=== PATIENT | male | born 1930 | race Caucasian/White ===

== ENCOUNTER 2017-09-25 14:55 | Inpatient (IN) | payer MEDICARE ==
[~2017-09-25] VITALS: Ht 175.3 cm; Wt 84.9 kg
[~2017-09-25 14:55] MED LIST: ACID1TAB3 PO; AMOX1TAB61 PO; CARV3.122 PO; FINA5TAB4 PO; FURO-93 PO; LISI2.5T PO; POTA10TA PO; PRED20TA PO; TAMS-11 PO; TRAV5DRO OP; bp med PO
[2017-09-25 15:23] LABS: BASOPHILS # (AUTO) 0.04 x10^3/uL (0-0.1); BASOPHILS % (AUTO) 0 % (0-1); EOSINOPHILS # (AUTO) 0.16 x10^3/uL (0-0.4); EOSINOPHILS % (AUTO) 2 % (1-7); LYMPHOCYTES # (AUTO) 1.54 x10^3/uL (1-3.4); LYMPHOCYTES % (AUTO) 16 % (22-44); MD NO; MEAN CORPUSCULAR HEMOGLOBIN 31.6 pg (27.5-34.5); MEAN CORPUSCULAR HGB CONC 35.1 g/dL (33.2-36.2); MEAN CORPUSCULAR VOLUME 89.9 fL (81-97); MEAN PLATELET VOLUME 7.2 fL (7.4-10.4); MONOCYTES # (AUTO) 0.77 x10^3/uL (0.2-0.8); MONOCYTES % (AUTO) 8 % (2-9); NEUTROPHILS # (AUTO) 7.04 x10^3/uL (1.8-6.8); NEUTROPHILS % (AUTO) 74 % (42-75); PLATELET COUNT 406 x10^3/uL (130-400); RED BLOOD COUNT 3.45 x10^6/uL (4.38-5.82); RED CELL DISTRIBUTION WIDTH 12.9 % (9.4-14.8)
[2017-09-25] MEDS ORDERED: SODIUM CHLORIDE FLUSH 10ML SYR IVF ONE (15:30)
[2017-09-25 15:34] LABS: ALANINE AMINOTRANSFERASE 15 U/L (12-78); ALBUMIN 2.9 g/dL (3.4-5.0); ANION GAP 12 mmol/L (5-15); CALCIUM 8.4 mg/dL (8.5-10.1); CHLORIDE 106 mmol/L (98-107); CREATININE 3.72 mg/dL (0.7-1.3)
[2017-09-25 15:37] LABS: ALKALINE PHOSPHATASE 63 U/L (45-117); BILIRUBIN,TOTAL 0.5 mg/dL (0.2-1.0); TOTAL PROTEIN 6.6 g/dL (6.4-8.2)
[2017-09-25 16:04] LABS: MICROSCOPIC NOT IND
[2017-09-25 16:08] LABS: CULTURE INDICATED? NO
[2017-09-25] MEDS ORDERED: LACTULOSE 20 GM/30 ML UDC PO PRN (17:30)
[2017-09-25] MEDS ORDERED: ONDANSETRON 2MG/ML, 2ML IVPush PRN (17:30)
[2017-09-25] MEDS ORDERED: LABETALOL 5MG/ML, 20ML IVPush PRN (17:30)
[2017-09-25] MEDS ORDERED: hydrALAzine 20 MG/ML, 1ML IVPush PRN (17:30)
[2017-09-25] MEDS ORDERED: ONDANSETRON ODT 4 MG PO PRN (17:30)
[2017-09-25] MEDS ORDERED: BISACODYL 10 MG SUPP PR PRN ×2 (17:30)
[2017-09-25 18:39] VITALS: BP 135/70
[2017-09-25] MEDS: LACTATED RINGERS 1,000 ML IV SCH (18:47)
[2017-09-25] MEDS: HEPARIN 5,000 UNITS/ML, 1ML SQ SCH (18:51)
[2017-09-25] MEDS ORDERED: HYDROCHLOROTHIAZIDE 12.5 MG CAPSULE PO ONE (19:00)
[2017-09-25] MEDS: TRAVOPROST OPHTH 0.004%, 2.5ML OP SCH (21:00)
[2017-09-25] MEDS: FINASTERIDE 5 MG TABLET PO SCH (22:43)
[2017-09-25] MEDS: SENNOSIDES 8.8 MG/5 ML ORAL SOL NG SCH (22:47)
[2017-09-26 01:03] VITALS: BP 115/58
[2017-09-26] MEDS: LACTATED RINGERS 1,000 ML IV SCH ×3 (04:46→19:12)
[2017-09-26] MEDS: HEPARIN 5,000 UNITS/ML, 1ML SQ SCH ×2 (04:46→10:56)
[2017-09-26 05:32] LABS: ALANINE AMINOTRANSFERASE 13 U/L (12-78); ALBUMIN 2.4 g/dL (3.4-5.0); ANION GAP 10 mmol/L (5-15); BASOPHILS # (AUTO) 0.03 x10^3/uL (0-0.1); BASOPHILS % (AUTO) 0 % (0-1); CALCIUM 7.1 mg/dL (8.5-10.1); CHLORIDE 110 mmol/L (98-107); CREATININE 3.53 mg/dL (0.7-1.3); EOSINOPHILS # (AUTO) 0.34 x10^3/uL (0-0.4); EOSINOPHILS % (AUTO) 4 % (1-7); LYMPHOCYTES % (AUTO) 23 % (22-44); MD NO; MEAN CORPUSCULAR HGB CONC 34.4 g/dL (33.2-36.2); MEAN CORPUSCULAR VOLUME 90.1 fL (81-97); MEAN PLATELET VOLUME 7.4 fL (7.4-10.4); MONOCYTES # (AUTO) 0.96 x10^3/uL (0.2-0.8); MONOCYTES % (AUTO) 11 % (2-9); NEUTROPHILS # (AUTO) 5.41 x10^3/uL (1.8-6.8); NEUTROPHILS % (AUTO) 62 % (42-75); PLATELET COUNT 303 x10^3/uL (130-400); RED BLOOD COUNT 2.79 x10^6/uL (4.38-5.82); RED CELL DISTRIBUTION WIDTH 13.4 % (9.4-14.8)
[2017-09-26 05:34] LABS: ALKALINE PHOSPHATASE 55 U/L (45-117); BILIRUBIN,TOTAL 0.5 mg/dL (0.2-1.0); TOTAL PROTEIN 5.5 g/dL (6.4-8.2)
[2017-09-26 07:39] VITALS: BP 122/64
[2017-09-26] MEDS ORDERED: LISINOPRIL 20 MG TABLET PO SCH (09:00)
[2017-09-26] MEDS: DOCUSATE 50 MG/5 ML, 10ML UDC NG SCH (09:00)
[2017-09-26] MEDS: SENNA/DOCUSATE TABLET PO SCH (10:00)
[2017-09-26] MEDS: TAMSULOSIN 0.4 MG CAP.ER.24H PO SCH (10:00)
[2017-09-26] MEDS: DOCUSATE 100 MG CAPSULE PO SCH (10:00)
[2017-09-26 13:35] VITALS: BP 134/71
[2017-09-26 19:56] VITALS: BP 126/59
[2017-09-26] MEDS: TRAVOPROST OPHTH 0.004%, 2.5ML OP SCH (20:57)
[2017-09-26] MEDS: FINASTERIDE 5 MG TABLET PO SCH (20:58)
[2017-09-26] MEDS: SENNOSIDES 8.8 MG/5 ML ORAL SOL NG SCH (20:58)
[2017-09-27 02:04] VITALS: BP 152/68
[2017-09-27] MEDS: LACTATED RINGERS 1,000 ML IV SCH ×3 (04:00→20:00)
[2017-09-27 05:44] LABS: ALBUMIN 2.5 g/dL (3.4-5.0); ANION GAP 7 mmol/L (5-15); CALCIUM 7.6 mg/dL (8.5-10.1); CHLORIDE 112 mmol/L (98-107)
[2017-09-27 05:48] LABS: ALANINE AMINOTRANSFERASE 16 U/L (12-78); ALKALINE PHOSPHATASE 56 U/L (45-117); BILIRUBIN,TOTAL 0.7 mg/dL (0.2-1.0); CREATININE 3.88 mg/dL (0.7-1.3); TOTAL PROTEIN 5.8 g/dL (6.4-8.2)
[2017-09-27 07:11] VITALS: BP 131/65
[2017-09-27] MEDS: DOCUSATE 50 MG/5 ML, 10ML UDC NG SCH (09:00)
[2017-09-27] MEDS: DOCUSATE 100 MG CAPSULE PO SCH (09:00)
[2017-09-27] MEDS: TAMSULOSIN 0.4 MG CAP.ER.24H PO SCH (09:04)
[2017-09-27] MEDS: SENNA/DOCUSATE TABLET PO SCH (09:04)
[2017-09-27 14:02] VITALS: BP 137/78
[2017-09-27] MEDS ORDERED: GADOBUTROL 7.5 MMOL/7.5 ML PFS ONE (17:21)
[2017-09-27 20:00] VITALS: BP 125/64
[2017-09-27] MEDS: FINASTERIDE 5 MG TABLET PO SCH (21:00)
[2017-09-27] MEDS: TRAVOPROST OPHTH 0.004%, 2.5ML OP SCH (21:00)
[2017-09-28 02:00] VITALS: BP 142/70
[2017-09-28 04:59] LABS: INTERNATIONAL NORMALIZED RATIO 1.1 (0.93-1.1); PROTHROMBIN TIME 11.4 Seconds (9.6-11.5)
[2017-09-28 05:00] LABS: BASOPHILS # (AUTO) 0.05 x10^3/uL (0-0.1); BASOPHILS % (AUTO) 0 % (0-1); EOSINOPHILS # (AUTO) 0.07 x10^3/uL (0-0.4); EOSINOPHILS % (AUTO) 1 % (1-7); LYMPHOCYTES # (AUTO) 1.12 x10^3/uL (1-3.4); LYMPHOCYTES % (AUTO) 11 % (22-44); MD NO; MEAN CORPUSCULAR HGB CONC 34.6 g/dL (33.2-36.2); MEAN CORPUSCULAR VOLUME 89.6 fL (81-97); MEAN PLATELET VOLUME 7.1 fL (7.4-10.4); MONOCYTES # (AUTO) 1.35 x10^3/uL (0.2-0.8); MONOCYTES % (AUTO) 13 % (2-9); NEUTROPHILS # (AUTO) 7.65 x10^3/uL (1.8-6.8); NEUTROPHILS % (AUTO) 75 % (42-75); PLATELET COUNT 289 x10^3/uL (130-400); RED BLOOD COUNT 2.84 x10^6/uL (4.38-5.82); RED CELL DISTRIBUTION WIDTH 13.1 % (9.4-14.8)
[2017-09-28 05:06] LABS: ALANINE AMINOTRANSFERASE 13 U/L (12-78); ALBUMIN 2.3 g/dL (3.4-5.0); ANION GAP 8 mmol/L (5-15); CHLORIDE 114 mmol/L (98-107); CREATININE 3.16 mg/dL (0.7-1.3)
[2017-09-28 05:08] LABS: ALKALINE PHOSPHATASE 44 U/L (45-117); BILIRUBIN,TOTAL 0.6 mg/dL (0.2-1.0); TOTAL PROTEIN 5.6 g/dL (6.4-8.2)
[2017-09-28] MEDS: LACTATED RINGERS 1,000 ML IV SCH ×3 (05:55→22:19)
[2017-09-28 08:00] VITALS: BP 154/67
[2017-09-28] MEDS: DOCUSATE 50 MG/5 ML, 10ML UDC NG SCH (08:32)
[2017-09-28] MEDS: SENNA/DOCUSATE TABLET PO SCH (08:32)
[2017-09-28] MEDS: DOCUSATE 100 MG CAPSULE PO SCH (08:32)
[2017-09-28] MEDS: TAMSULOSIN 0.4 MG CAP.ER.24H PO SCH (09:35)
[2017-09-28] MEDS: TIMOLOL OPHTH 0.5%, 5ML EACHEYE SCH (11:24)
[2017-09-28 14:02] VITALS: BP 144/70
[2017-09-28 20:24] VITALS: BP 135/65
[2017-09-28] MEDS: LATANOPROST OPHTH 0.005%, 2.5ML OP SCH (21:00)
[2017-09-28] MEDS: FINASTERIDE 5 MG TABLET PO SCH (22:18)
[2017-09-29 01:32] VITALS: BP 150/73
[2017-09-29 06:14] LABS: ANION GAP 9 mmol/L (5-15); CALCIUM 8.2 mg/dL (8.5-10.1); CHLORIDE 113 mmol/L (98-107); CREATININE 2.93 mg/dL (0.7-1.3)
[2017-09-29] MEDS: LACTATED RINGERS 1,000 ML IV SCH (06:20)
[2017-09-29 06:55] VITALS: BP 151/69
[2017-09-29] MEDS: DOCUSATE 50 MG/5 ML, 10ML UDC NG SCH (09:00)
[2017-09-29] MEDS: DOCUSATE 100 MG CAPSULE PO SCH (09:00)
[2017-09-29] MEDS: SENNA/DOCUSATE TABLET PO SCH (09:56)
[2017-09-29] MEDS: TAMSULOSIN 0.4 MG CAP.ER.24H PO SCH (09:58)
[2017-09-29] MEDS: TIMOLOL OPHTH 0.5%, 5ML EACHEYE SCH (10:46)
[2017-09-29] MEDS ORDERED: LIDOCAINE GEL 2%, 5ML TP ONE (11:00)
[2017-09-29 13:05] VITALS: BP 146/75
[2017-09-29 20:08] VITALS: BP 160/69
[2017-09-29] MEDS: FINASTERIDE 5 MG TABLET PO SCH (20:55)
[2017-09-29] MEDS: LATANOPROST OPHTH 0.005%, 2.5ML OP SCH (21:00)
[2017-09-30 01:03] VITALS: BP 135/65
[2017-09-30 05:06] LABS: ANION GAP 8 mmol/L (5-15); CALCIUM 7.7 mg/dL (8.5-10.1); CHLORIDE 113 mmol/L (98-107)
[2017-09-30 05:07] LABS: CREATININE 2.65 mg/dL (0.7-1.3)
[2017-09-30 07:35] VITALS: BP 156/75
[2017-09-30] MEDS: DOCUSATE 50 MG/5 ML, 10ML UDC NG SCH (09:00)
[2017-09-30] MEDS: SENNA/DOCUSATE TABLET PO SCH (09:00)
[2017-09-30] MEDS: TAMSULOSIN 0.4 MG CAP.ER.24H PO SCH (09:54)
[2017-09-30] MEDS: DOCUSATE 100 MG CAPSULE PO SCH (09:54)
[2017-09-30] MEDS: TIMOLOL OPHTH 0.5%, 5ML EACHEYE SCH (09:54)
[2017-09-30 13:30] VITALS: BP 146/70
[2017-09-30 19:35] VITALS: BP 121/62
[2017-09-30] MEDS: FINASTERIDE 5 MG TABLET PO SCH (20:32)
[2017-09-30] MEDS: LATANOPROST OPHTH 0.005%, 2.5ML OP SCH (20:34)
[2017-10-01 01:54] VITALS: BP 153/69
[2017-10-01 05:49] LABS: ANION GAP 8 mmol/L (5-15); CALCIUM 7.9 mg/dL (8.5-10.1); CHLORIDE 109 mmol/L (98-107)
[2017-10-01 05:52] LABS: CREATININE 2.53 mg/dL (0.7-1.3)
[2017-10-01 06:57] VITALS: BP 129/64
[2017-10-01] MEDS: DOCUSATE 50 MG/5 ML, 10ML UDC NG SCH (08:54)
[2017-10-01] MEDS: SENNA/DOCUSATE TABLET PO SCH (09:00)
[2017-10-01] MEDS: DOCUSATE 100 MG CAPSULE PO SCH (09:07)
[2017-10-01] MEDS: TIMOLOL OPHTH 0.5%, 5ML EACHEYE SCH (09:07)
[2017-10-01] MEDS: TAMSULOSIN 0.4 MG CAP.ER.24H PO SCH (09:07)
[2017-10-01] MEDS: LISINOPRIL 20 MG TABLET PO SCH (09:07)
[2017-10-01 13:37] VITALS: BP 124/65
[2017-10-01 18:58] VITALS: BP 134/67
[2017-10-01] MEDS: LATANOPROST OPHTH 0.005%, 2.5ML OP SCH (21:00)
[2017-10-01] MEDS: FINASTERIDE 5 MG TABLET PO SCH (22:22)
[2017-10-02 02:51] VITALS: BP 106/58
[2017-10-02 05:11] LABS: ALBUMIN 2.1 g/dL (3.4-5.0); ANION GAP 8 mmol/L (5-15); CALCIUM 7.9 mg/dL (8.5-10.1); CHLORIDE 109 mmol/L (98-107)
[2017-10-02 05:13] LABS: CREATININE 2.53 mg/dL (0.7-1.3)
[2017-10-02 07:00] VITALS: BP 127/65
[2017-10-02] MEDS: DOCUSATE 50 MG/5 ML, 10ML UDC NG SCH (08:44)
[2017-10-02] MEDS: DOCUSATE 100 MG CAPSULE PO SCH (08:48)
[2017-10-02] MEDS: TAMSULOSIN 0.4 MG CAP.ER.24H PO SCH (08:48)
[2017-10-02] MEDS: LISINOPRIL 20 MG TABLET PO SCH (08:48)
[2017-10-02] MEDS: TIMOLOL OPHTH 0.5%, 5ML EACHEYE SCH (08:49)
[2017-10-02] MEDS: SENNA/DOCUSATE TABLET PO SCH (08:50)
[2017-10-02 14:37] VITALS: BP 134/70
== END 2017-10-02 16:58 | disposition home health service (06) | DRG 682 ==
LOC: ED 16:44 → EDIP 16:47 → 4NOR 18:22 → DCLOUNGE 10-02 16:50
PROVIDERS: ADMIT Family Medicine; ATTEND Family Medicine
DX: N17.9 Acute kidney failure, unspecified (principal); E43 Unspecified severe protein-calorie malnutrition; R31.0 Gross hematuria; D62 Acute posthemorrhagic anemia; N13.8 Other obstructive and reflux uropathy; D63.8 Anemia in other chronic diseases classified elsewhere; N40.1 Benign prostatic hyperplasia with lower urinary tract symptoms; N13.30 Unspecified hydronephrosis; H40.9 Unspecified glaucoma; I10 Essential (primary) hypertension; K44.9 Diaphragmatic hernia without obstruction or gangrene; K59.09 Other constipation; N32.0 Bladder-neck obstruction; N32.3 Diverticulum of bladder; N32.89 Other specified disorders of bladder; R33.8 Other retention of urine; Z87.891 Personal history of nicotine dependence; Z91.19 Patient's noncompliance with other medical treatment and regimen
CPT/HCPCS: 36415; 71250; 72158; 74176; 76770; 80048; 80053; 80069; 81003; 82274; 82728; 83540; 83550; 84153; 85014; 85018; 85025; 85610; 85730; 99285; A9585; J1644; J7120

== ENCOUNTER 2017-10-05 14:10 | Inpatient (IN) | payer MEDICARE ==
[~2017-10-05] VITALS: Ht 175.3 cm; Wt 81.5 kg
[2017-10-05 15:08] LABS: BASOPHILS # (AUTO) 0.05 x10^3/uL (0-0.1); BASOPHILS % (AUTO) 0 % (0-1); EOSINOPHILS # (AUTO) 0.09 x10^3/uL (0-0.4); EOSINOPHILS % (AUTO) 1 % (1-7); LYMPHOCYTES # (AUTO) 1.62 x10^3/uL (1-3.4); LYMPHOCYTES % (AUTO) 11 % (22-44); MD NO; MEAN CORPUSCULAR HEMOGLOBIN 30.3 pg (27.5-34.5); MEAN CORPUSCULAR HGB CONC 33.7 g/dL (33.2-36.2); MEAN CORPUSCULAR VOLUME 89.9 fL (81-97); MEAN PLATELET VOLUME 6.8 fL (7.4-10.4); MONOCYTES # (AUTO) 1.25 x10^3/uL (0.2-0.8); MONOCYTES % (AUTO) 8 % (2-9); NEUTROPHILS # (AUTO) 12.38 x10^3/uL (1.8-6.8); NEUTROPHILS % (AUTO) 80 % (42-75); PLATELET COUNT 637 x10^3/uL (130-400); RED BLOOD COUNT 3.12 x10^6/uL (4.38-5.82); RED CELL DISTRIBUTION WIDTH 12.8 % (9.4-14.8)
[2017-10-05 15:16] LABS: MICROSCOPIC INDICATED
[2017-10-05 15:19] LABS: ALBUMIN 2.4 g/dL (3.4-5.0); ANION GAP 10 mmol/L (5-15); CALCIUM 8.1 mg/dL (8.5-10.1); CHLORIDE 105 mmol/L (98-107); CREATININE 3.29 mg/dL (0.7-1.3)
[2017-10-05 15:23] LABS: CULTURE INDICATED? YES
[2017-10-05] MEDS ORDERED: SODIUM CHLORIDE FLUSH 10ML SYR IVF ONE (16:30)
[2017-10-05] MEDS ORDERED: CEFTRIAXONE PMX 1GM/50ML 50 ML IV ONE (16:30)
[2017-10-05] MEDS ORDERED: SODIUM CHLORIDE 0.9% 1,000 ML IV ONE (17:00)
[2017-10-05] MEDS ORDERED: CEFOTETAN PMX 1GM/50ML 50 ML ONE (17:02)
[2017-10-05] MEDS ORDERED: SODIUM CHLORIDE FLUSH 10ML SYR IVF PRN (18:00)
[2017-10-05] MEDS ORDERED: LABETALOL 5MG/ML, 20ML IVPush PRN (19:30)
[2017-10-05] MEDS ORDERED: ACETAMINOPHEN 325 MG TABLET PO PRN (19:30)
[2017-10-05] MEDS: HEPARIN 5,000 UNITS/ML, 1ML SQ SCH (19:30)
[2017-10-05] MEDS ORDERED: ONDANSETRON 2MG/ML, 2ML IVPush PRN (19:30)
[2017-10-05] MEDS ORDERED: BISACODYL 10 MG SUPP PR PRN (19:30)
[2017-10-05 19:59] VITALS: BP 146/62
[2017-10-05] MEDS ORDERED: CEFTRIAXONE PMX 1GM/50ML 50 ML IV SCH (20:00)
[2017-10-05] MEDS: FINASTERIDE 5 MG TABLET PO SCH (21:58)
[2017-10-05] MEDS: LACTATED RINGERS 1,000 ML IV SCH (21:58)
[2017-10-06 00:31] VITALS: BP 107/50
[2017-10-06 04:39] LABS: BASOPHILS # (AUTO) 0.08 x10^3/uL (0-0.1); BASOPHILS % (AUTO) 1 % (0-1); EOSINOPHILS # (AUTO) 0.21 x10^3/uL (0-0.4); EOSINOPHILS % (AUTO) 2 % (1-7); LYMPHOCYTES # (AUTO) 1.86 x10^3/uL (1-3.4); LYMPHOCYTES % (AUTO) 17 % (22-44); MD NO; MEAN CORPUSCULAR HEMOGLOBIN 30.8 pg (27.5-34.5); MEAN CORPUSCULAR HGB CONC 34.2 g/dL (33.2-36.2); MEAN CORPUSCULAR VOLUME 89.9 fL (81-97); MEAN PLATELET VOLUME 6.5 fL (7.4-10.4); MONOCYTES # (AUTO) 1.12 x10^3/uL (0.2-0.8); MONOCYTES % (AUTO) 10 % (2-9); NEUTROPHILS # (AUTO) 7.78 x10^3/uL (1.8-6.8); NEUTROPHILS % (AUTO) 70 % (42-75); PLATELET COUNT 534 x10^3/uL (130-400); RED BLOOD COUNT 2.74 x10^6/uL (4.38-5.82); RED CELL DISTRIBUTION WIDTH 12.8 % (9.4-14.8)
[2017-10-06 04:41] LABS: ANION GAP 9 mmol/L (5-15); CALCIUM 7.7 mg/dL (8.5-10.1); CHLORIDE 111 mmol/L (98-107); CREATININE 3.08 mg/dL (0.7-1.3)
[2017-10-06 06:38] VITALS: BP 106/58
[2017-10-06] MEDS: HEPARIN 5,000 UNITS/ML, 1ML SQ SCH ×3 (06:42→21:47)
[2017-10-06] MEDS: LISINOPRIL 20 MG TABLET PO SCH (08:31)
[2017-10-06] MEDS: TAMSULOSIN 0.4 MG CAP.ER.24H PO SCH (08:31)
[2017-10-06] MEDS: SENNA/DOCUSATE TABLET PO SCH (08:31)
[2017-10-06 13:57] VITALS: BP 129/61
[2017-10-06] MEDS: LACTATED RINGERS 1,000 ML IV SCH (14:02)
[2017-10-06] MEDS: CEFTRIAXONE PMX 1GM/50ML 50 ML IV SCH (16:29)
[2017-10-06 18:53] VITALS: BP 137/69
[2017-10-06] MEDS: FINASTERIDE 5 MG TABLET PO SCH (21:47)
[2017-10-07 01:11] VITALS: BP 135/72
[2017-10-07] MEDS: LACTATED RINGERS 1,000 ML IV SCH (05:27)
[2017-10-07] MEDS: HEPARIN 5,000 UNITS/ML, 1ML SQ SCH ×3 (05:27→20:17)
[2017-10-07] MEDS ORDERED: LACTATED RINGERS 1,000 ML IV SCH (06:30)
[2017-10-07 06:42] VITALS: BP 127/64
[2017-10-07 06:57] LABS: ALBUMIN 1.9 g/dL (3.4-5.0); ANION GAP 11 mmol/L (5-15); CALCIUM 7.9 mg/dL (8.5-10.1); CHLORIDE 109 mmol/L (98-107); CREATININE 2.83 mg/dL (0.7-1.3)
[2017-10-07] MEDS: SENNA/DOCUSATE TABLET PO SCH (09:03)
[2017-10-07] MEDS: TAMSULOSIN 0.4 MG CAP.ER.24H PO SCH (09:04)
[2017-10-07] MEDS: LISINOPRIL 20 MG TABLET PO SCH (09:04)
[2017-10-07 13:39] VITALS: BP 149/70
[2017-10-07] MEDS: CEFTRIAXONE PMX 1GM/50ML 50 ML IV SCH (17:06)
[2017-10-07 18:42] VITALS: BP 123/65
[2017-10-07] MEDS: POLYETHYLENE GLYCOL 17 GM PACKET PO PRN (20:17)
[2017-10-07] MEDS: FINASTERIDE 5 MG TABLET PO SCH (20:17)
[2017-10-08 00:56] VITALS: BP 129/59
[2017-10-08] MEDS: HEPARIN 5,000 UNITS/ML, 1ML SQ SCH (05:33)
[2017-10-08] MEDS ORDERED: LACTATED RINGERS 1,000 ML IV SCH (06:30)
[2017-10-08 06:42] VITALS: BP 138/68
[2017-10-08 06:47] LABS: ANION GAP 9 mmol/L (5-15); CALCIUM 8.2 mg/dL (8.5-10.1); CHLORIDE 107 mmol/L (98-107); CREATININE 2.37 mg/dL (0.7-1.3)
[2017-10-08] MEDS: POLYETHYLENE GLYCOL 17 GM PACKET PO PRN (08:48)
[2017-10-08] MEDS: LISINOPRIL 20 MG TABLET PO SCH (08:48)
[2017-10-08] MEDS: SENNA/DOCUSATE TABLET PO SCH (08:48)
[2017-10-08] MEDS: TAMSULOSIN 0.4 MG CAP.ER.24H PO SCH (08:48)
[2017-10-08 12:20] VITALS: BP 139/63
[2017-10-08] MEDS ORDERED: NITR50CA11 PO (12:44)
[2017-10-08] MEDS ORDERED: CEFD300C37 PO (12:44)
[2017-10-08] MEDS ORDERED: SULF1TAB24 PO (13:17)
== END 2017-10-08 15:36 | disposition home or self-care (01) | DRG 698 ==
LOC: ED 18:10 → 3NE 19:27 → DCLOUNGE 10-08 15:21
PROVIDERS: ADMIT Student in an Organized Health Care Education/Training Program; ATTEND Student in an Organized Health Care Education/Training Program
DX: T83.511A Infection and inflammatory reaction due to indwelling urethral catheter, initial encounter (principal); N17.0 Acute kidney failure with tubular necrosis; E43 Unspecified severe protein-calorie malnutrition; D64.9 Anemia, unspecified; N13.9 Obstructive and reflux uropathy, unspecified; N30.91 Cystitis, unspecified with hematuria; H40.9 Unspecified glaucoma; H26.9 Unspecified cataract; K59.09 Other constipation; N18.3 Chronic kidney disease, stage 3 (moderate); I12.9 Hypertensive chronic kidney disease with stage 1 through stage 4 chronic kidney disease, or unspecified chronic kidney disease; N40.1 Benign prostatic hyperplasia with lower urinary tract symptoms; R33.8 Other retention of urine; Y84.6 Urinary catheterization as the cause of abnormal reaction of the patient, or of later complication, without mention of misadventure at the time of the procedure; R91.1 Solitary pulmonary nodule; R91.8 Other nonspecific abnormal finding of lung field; Y84.8 Other medical procedures as the cause of abnormal reaction of the patient, or of later complication, without mention of misadventure at the time of the procedure; D72.829 Elevated white blood cell count, unspecified; N32.9 Bladder disorder, unspecified; Z68.26 Body mass index [BMI] 26.0-26.9, adult; Z79.2 Long term (current) use of antibiotics; Z87.891 Personal history of nicotine dependence; Y92.89 Other specified places as the place of occurrence of the external cause
CPT/HCPCS: 36415; 51702; 80048; 80069; 81001; 82040; 83605; 85025; 87040; 87077; 87086; 87186; J0696; J1644; J7030; J7120

== ENCOUNTER 2018-08-09 14:40 | Inpatient (IN) | payer MEDICARE, OTHER ==
[~2018-08-09] VITALS: Ht 175.3 cm; Wt 78.0 kg
[~2018-08-09 14:40] MED LIST changes: +CEFD300C37 PO; +NITR50CA11 PO; +SULF1TAB24 PO
[2018-08-09] MEDS ORDERED: SODIUM CHLORIDE FLUSH 10ML SYR IVF ONE ×2 (15:30→17:00)
[2018-08-09 16:00] LABS: ALANINE AMINOTRANSFERASE 24 U/L (12-78); ALBUMIN 2.8 g/dL (3.4-5.0); ANION GAP 15 mmol/L (5-15); CHLORIDE 108 mmol/L (98-107); CREATININE 9.58 mg/dL (0.7-1.3)
[2018-08-09 16:04] LABS: MEAN CORPUSCULAR HEMOGLOBIN 28.6 pg (27.5-34.5); MEAN CORPUSCULAR HGB CONC 32.7 g/dL (33.2-36.2); MEAN CORPUSCULAR VOLUME 87.5 fL (81-97); MEAN PLATELET VOLUME 7.3 fL (7.4-10.4); PLATELET COUNT 459 x10^3/uL (130-400); RED BLOOD COUNT 2.96 x10^6/uL (4.38-5.82); RED CELL DISTRIBUTION WIDTH 13.2 % (9.4-14.8)
[2018-08-09 16:10] LABS: ALKALINE PHOSPHATASE 97 U/L (45-117); BILIRUBIN,TOTAL 0.4 mg/dL (0.2-1.0); TOTAL PROTEIN 7.4 g/dL (6.4-8.2)
[2018-08-09] MEDS ORDERED: CEFTRIAXONE PMX 2GM/50ML 50 ML IV SCH (16:30)
[2018-08-09] MEDS ORDERED: CEFTRIAXONE PMX 1GM/50ML 0 ML ONE (16:46)
[2018-08-09] MEDS ORDERED: CEFTRIAXONE PMX 2GM/50ML 50 ML ONE (16:48)
[2018-08-09 16:55] LABS: MD YES
[2018-08-09 16:57] LABS: <PLATELET ESTIMATE> INCREASED; <PLT MORPHOLOGY> NORMAL PLT MORPH; <RBC MORPHOLOGY> NORMAL; BAND#(MANUAL) 0.16 x10^3/uL; BANDS%(MANUAL) 1 % (0-7); LYMPHS% (MANUAL) 9 % (22-44); MONOS#(MANUAL) 0.62 x10^3/uL (0.3-2.7); MONOS% (MANUAL) 4 % (2-9); SEG#(MANUAL) 13.42 x10^3/uL (1.8-6.8); SEGS% (MANUAL) 86 % (42-75); TOXIC GRAN 1+
--- NOTE | 2018-08-09 16:59 | NUR ---
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
[2018-08-09] MEDS ORDERED: SODIUM CHLORIDE 0.9% 1,000ML IVBOLUS ONE (17:00)
[2018-08-09] MEDS ORDERED: SODIUM BICARB 8.4%,50ML SYR. 150 MEQ in DEXTROSE 5% 1,000 ML IV ONE (17:00)
[2018-08-09 17:16] LABS: CULTURE INDICATED? YES; MICROSCOPIC INDICATED
[2018-08-09] MEDS ORDERED: FURO20TA3 PO (17:20)
[2018-08-09] MEDS ORDERED: TIMO5DRO33 EACHEYE (17:20)
--- NOTE | 2018-08-09 17:20 | NUR ---
TASK RN: Admitting provider at bedside evaluating patient, CT delay.
[2018-08-09] MEDS ORDERED: ONDANSETRON 2MG/ML, 2ML ONE (17:22)
[2018-08-09] MEDS ORDERED: MORPHINE SULFATE 4 MG/ML, 1ML ONE (17:22)
[2018-08-09] MEDS ORDERED: ONDANSETRON 2MG/ML, 2ML IVPush ONE (17:30)
[2018-08-09] MEDS ORDERED: MORPHINE SULFATE 4 MG/ML, 1ML IVPush PRN (17:30)
[2018-08-09] MEDS ORDERED: DIPHENHYDRAMINE 50 MG/ML, 1ML ONE (17:39)
[2018-08-09] MEDS ORDERED: FAMOTIDINE 20 MG/2 ML ONE (17:39)
--- NOTE | 2018-08-09 17:47 | NUR ---
TASK RN: Patient developed hives during rocephin administration, patient reported itching to [facility] provider who placed orders for benadryl and pepcid. Rocephin stopped, medications administered as ordered and documented. Patient reports only hives, denies shortness of breath or difficulty swallowing. Continuous blood pressure and SPO2 monitoring in place, vital signs as documented.
[2018-08-09] MEDS ORDERED: hydrALAzine 20 MG/ML, 1ML IVPush PRN (18:00)
[2018-08-09] MEDS ORDERED: FAMOTIDINE 20 MG/2 ML IVPush ONE (18:00)
[2018-08-09] MEDS ORDERED: DIPHENHYDRAMINE 50 MG/ML, 1ML IVPush ONE (18:00)
[2018-08-09] MEDS ORDERED: LACTATED RINGERS 1,000 ML IV SCH (18:00)
[2018-08-09] MEDS ORDERED: ONDANSETRON 2MG/ML, 2ML IVPush PRN (18:00)
[2018-08-09] MEDS ORDERED: morphine SULFATE 10 MG/ML, 1ML IVPush PRN (18:00)
[2018-08-09] MEDS ORDERED: AMPICILLIN/SULBACTAM 1,500 MG in SODIUM CHLORIDE 0.9% 50 ML IV SCH (18:00)
[2018-08-09 18:24] LABS: TROPONIN I < 0.015 ng/mL (0.000-0.045)
[2018-08-09] MEDS ORDERED: MEROPENEM PER PHARMACY MC PRN (18:30)
[2018-08-09] MEDS: MEROPENEM 500 MG in SODIUM CHLORIDE 0.9% 100 ML IV SCH (18:44)
[2018-08-09] MEDS ORDERED: PHARMACOKINETIC CONSULTATION MC ONE (19:00)
[2018-08-09] MEDS ORDERED: VANCOMYCIN PER PHARMACY MC PRN (19:00)
[2018-08-09] MEDS ORDERED: PHARMACOKINETIC MONITORING MC PRN (19:00)
[2018-08-09 20:28] VITALS: BP 119/71
[2018-08-09] MEDS ORDERED: VANCOMYCIN 1,400 MG in SODIUM CHLORIDE 0.9% 250 ML IV ONE (20:30)
[2018-08-10] VITALS (9 sets, daily range): BP systolic 98–117; BP diastolic 57–69
[2018-08-10] MEDS: HEPARIN 5,000 UNITS/ML, 1ML SQ SCH ×2 (00:32→07:44)
[2018-08-10 00:54] LABS: TROPONIN I < 0.015 ng/mL (0.000-0.045)
[2018-08-10 04:27] LABS: MEAN CORPUSCULAR HEMOGLOBIN 29.5 pg (27.5-34.5); MEAN CORPUSCULAR HGB CONC 33.4 g/dL (33.2-36.2); MEAN CORPUSCULAR VOLUME 88.3 fL (81-97); PLATELET COUNT 350 x10^3/uL (130-400); RED BLOOD COUNT 2.53 x10^6/uL (4.38-5.82); RED CELL DISTRIBUTION WIDTH 13.6 % (9.4-14.8)
[2018-08-10 04:31] LABS: ALBUMIN 2.3 g/dL (3.4-5.0); ANION GAP 15 mmol/L (5-15); CALCIUM 8.2 mg/dL (8.5-10.1); CHLORIDE 109 mmol/L (98-107)
[2018-08-10 04:44] LABS: % IRON SATURATION 18 % (20-55); CREATININE 8.92 mg/dL (0.7-1.3); IRON LEVEL 40 mcg/dL (65-175); THYROID STIMULATING HORMONE 0.692 mIU/L (0.358-3.740); TOTAL IRON BINDING CAPACITY 227 mcg/dL (250-450)
[2018-08-10 05:24] LABS: MD YES
[2018-08-10 05:26] LABS: <PLATELET ESTIMATE> ADEQUATE; ANISOCYTOSIS 1+; BAND#(MANUAL) 0.51 x10^3/uL; BANDS%(MANUAL) 4 % (0-7); EOS#(MANUAL) 0.13 x10^3/uL (0.0-0.4); EOS% (MANUAL) 1 % (1-7); LYMPH#(MANUAL) 1.14 x10^3/uL (1-3.4); LYMPHS% (MANUAL) 9 % (22-44); MONOS#(MANUAL) 0.89 x10^3/uL (0.3-2.7); MONOS% (MANUAL) 7 % (2-9); OVALOCYTES 1+; SEG#(MANUAL) 10.03 x10^3/uL (1.8-6.8); SEGS% (MANUAL) 79 % (42-75)
[2018-08-10 05:27] LABS: <PLT MORPHOLOGY> NORMAL PLT MORPH
[2018-08-10] MEDS ORDERED: DIPHENHYDRAMINE 50 MG/ML, 1ML IVPush ONE (08:00)
[2018-08-10] MEDS: HYDROcodone/APAP 5/325 TABLET PO PRN ×2 (09:28→15:35)
[2018-08-10] MEDS: SENNA/DOCUSATE TABLET PO SCH (09:28)
[2018-08-10] MEDS ORDERED: DESMOPRESSIN IV ONE (12:00)
[2018-08-10] MEDS: TIMOLOL OPHTH 0.5%, 5ML EACHEYE SCH (12:00)
[2018-08-10] MEDS ORDERED: SODIUM CHLORIDE 0.9% IV ONE (12:00)
[2018-08-10 16:50] LABS: BASOPHILS # (AUTO) 0.04 x10^3/uL (0-0.1); BASOPHILS % (AUTO) 0 % (0-1); EOSINOPHILS # (AUTO) 0.31 x10^3/uL (0-0.4); EOSINOPHILS % (AUTO) 2 % (1-7); LYMPHOCYTES # (AUTO) 1.53 x10^3/uL (1-3.4); LYMPHOCYTES % (AUTO) 11 % (22-44); MD NO; MEAN CORPUSCULAR HEMOGLOBIN 30.4 pg (27.5-34.5); MEAN CORPUSCULAR HGB CONC 34.6 g/dL (33.2-36.2); MEAN CORPUSCULAR VOLUME 87.8 fL (81-97); MEAN PLATELET VOLUME 7.1 fL (7.4-10.4); MONOCYTES # (AUTO) 1.16 x10^3/uL (0.2-0.8); MONOCYTES % (AUTO) 9 % (2-9); NEUTROPHILS # (AUTO) 10.41 x10^3/uL (1.8-6.8); NEUTROPHILS % (AUTO) 78 % (42-75); PLATELET COUNT 359 x10^3/uL (130-400); RED CELL DISTRIBUTION WIDTH 13.7 % (9.4-14.8)
[2018-08-10] MEDS ORDERED: ALBUMIN HUMAN 25% 100 ML IV PRN (20:00)
[2018-08-10] MEDS: MEROPENEM 500 MG in SODIUM CHLORIDE 0.9% 100 ML IV SCH (21:55)
[2018-08-10] MEDS: LACTATED RINGERS 1,000 ML IV SCH (21:56)
[2018-08-11] VITALS (8 sets, daily range): BP systolic 94–127; BP diastolic 52–71
[2018-08-11] MEDS: LACTATED RINGERS 1,000 ML IV SCH (04:11)
[2018-08-11 04:47] LABS: ANION GAP 8 mmol/L (5-15); CALCIUM 7.9 mg/dL (8.5-10.1); CHLORIDE 108 mmol/L (98-107); CREATININE 5.76 mg/dL (0.7-1.3)
[2018-08-11 04:48] LABS: VANCOMYCIN,RANDOM 12.3 mcg/mL
[2018-08-11 05:21] LABS: MEAN CORPUSCULAR HEMOGLOBIN 29.4 pg (27.5-34.5); MEAN CORPUSCULAR HGB CONC 33.6 g/dL (33.2-36.2); MEAN CORPUSCULAR VOLUME 87.6 fL (81-97); MEAN PLATELET VOLUME 6.6 fL (7.4-10.4); PLATELET COUNT 290 x10^3/uL (130-400); RED BLOOD COUNT 2.11 x10^6/uL (4.38-5.82); RED CELL DISTRIBUTION WIDTH 13.8 % (9.4-14.8)
[2018-08-11 05:38] LABS: BASOPHILS # (AUTO) 0.04 x10^3/uL (0-0.1); BASOPHILS % (AUTO) 1 % (0-1); EOSINOPHILS # (AUTO) 0.27 x10^3/uL (0-0.4); EOSINOPHILS % (AUTO) 3 % (1-7); LYMPHOCYTES # (AUTO) 1.03 x10^3/uL (1-3.4); LYMPHOCYTES % (AUTO) 13 % (22-44); MD SCAN; MONOCYTES # (AUTO) 0.75 x10^3/uL (0.2-0.8); MONOCYTES % (AUTO) 9 % (2-9); NEUTROPHILS % (AUTO) 74 % (42-75)
[2018-08-11] MEDS: TIMOLOL OPHTH 0.5%, 5ML EACHEYE SCH (08:44)
[2018-08-11] MEDS: SENNA/DOCUSATE TABLET PO SCH (08:44)
[2018-08-11] MEDS: MORPHINE SULFATE 4 MG/ML, 1ML IVPush PRN ×2 (11:23→21:01)
[2018-08-11] MEDS ORDERED: VANCOMYCIN 1,500 MG in SODIUM CHLORIDE 0.9% 250 ML IV ONE (11:30)
[2018-08-11] MEDS ORDERED: FENTANYL PF 100 MCG/2ML ONE (13:44)
[2018-08-11] MEDS ORDERED: MIDAZOLAM 1 MG/ML, 5ML ONE (13:44)
[2018-08-11] MEDS ORDERED: LIDOCAINE 1%, 20ML ONE (13:45)
[2018-08-11] MEDS ORDERED: VISIPAQUE 270 MG/ML, 50ML BOTTLE ONE (14:00)
[2018-08-11] MEDS: SODIUM CHLORIDE 0.9% 1,000 ML IV SCH (15:58)
[2018-08-11] MEDS: MEROPENEM 500 MG in SODIUM CHLORIDE 0.9% 100 ML IV SCH (21:00)
[2018-08-12 01:10] VITALS: BP 96/52
[2018-08-12] MEDS: SODIUM CHLORIDE 0.9% 1,000 ML IV SCH (03:36)
[2018-08-12 05:24] LABS: MEAN CORPUSCULAR HEMOGLOBIN 29.2 pg (27.5-34.5); MEAN CORPUSCULAR HGB CONC 33.7 g/dL (33.2-36.2); MEAN CORPUSCULAR VOLUME 86.8 fL (81-97); MEAN PLATELET VOLUME 6.5 fL (7.4-10.4); PLATELET COUNT 280 x10^3/uL (130-400); RED BLOOD COUNT 2.59 x10^6/uL (4.38-5.82); RED CELL DISTRIBUTION WIDTH 14.1 % (9.4-14.8)
[2018-08-12 05:26] LABS: CREATININE 4.29 mg/dL (0.7-1.3)
[2018-08-12 05:55] LABS: BASOPHILS # (AUTO) 0.03 x10^3/uL (0-0.1); BASOPHILS % (AUTO) 0 % (0-1); EOSINOPHILS # (AUTO) 0.27 x10^3/uL (0-0.4); EOSINOPHILS % (AUTO) 2 % (1-7); LYMPHOCYTES # (AUTO) 1.27 x10^3/uL (1-3.4); LYMPHOCYTES % (AUTO) 8 % (22-44); MD SCAN; MONOCYTES # (AUTO) 1.19 x10^3/uL (0.2-0.8); MONOCYTES % (AUTO) 7 % (2-9); NEUTROPHILS # (AUTO) 13.79 x10^3/uL (1.8-6.8); NEUTROPHILS % (AUTO) 83 % (42-75)
[2018-08-12 08:07] VITALS: BP 103/57
[2018-08-12] MEDS: TIMOLOL OPHTH 0.5%, 5ML EACHEYE SCH (09:00)
[2018-08-12] MEDS: SENNA/DOCUSATE TABLET PO SCH (09:28)
[2018-08-12] MEDS: POLYETHYLENE GLYCOL 17 GM PACKET PO SCH (10:00)
[2018-08-12 14:15] VITALS: BP 107/44
[2018-08-12 19:58] VITALS: BP 127/63
[2018-08-12] MEDS: MEROPENEM 500 MG in SODIUM CHLORIDE 0.9% 100 ML IV SCH (21:29)
[2018-08-13 01:35] VITALS: BP 130/68
[2018-08-13 06:21] LABS: MEAN CORPUSCULAR HEMOGLOBIN 29.6 pg (27.5-34.5); MEAN CORPUSCULAR HGB CONC 33.8 g/dL (33.2-36.2); MEAN CORPUSCULAR VOLUME 87.6 fL (81-97); MEAN PLATELET VOLUME 6.6 fL (7.4-10.4); PLATELET COUNT 268 x10^3/uL (130-400); RED BLOOD COUNT 2.88 x10^6/uL (4.38-5.82); RED CELL DISTRIBUTION WIDTH 14.1 % (9.4-14.8)
[2018-08-13 06:34] LABS: ALBUMIN 2.4 g/dL (3.4-5.0); ANION GAP 9 mmol/L (5-15); CALCIUM 7.4 mg/dL (8.5-10.1); CHLORIDE 108 mmol/L (98-107)
[2018-08-13 06:40] LABS: ALANINE AMINOTRANSFERASE 17 U/L (12-78); ALKALINE PHOSPHATASE 81 U/L (45-117); BILIRUBIN,TOTAL 0.9 mg/dL (0.2-1.0); CREATININE 4.61 mg/dL (0.7-1.3); TOTAL PROTEIN 5.6 g/dL (6.4-8.2); VANCOMYCIN,RANDOM 19.9 mcg/mL
[2018-08-13 06:53] LABS: BASOPHILS # (AUTO) 0.01 x10^3/uL (0-0.1); BASOPHILS % (AUTO) 0 % (0-1); EOSINOPHILS # (AUTO) 0.12 x10^3/uL (0-0.4); EOSINOPHILS % (AUTO) 1 % (1-7); LYMPHOCYTES # (AUTO) 1.03 x10^3/uL (1-3.4); LYMPHOCYTES % (AUTO) 7 % (22-44); MD SCAN; MONOCYTES # (AUTO) 1.16 x10^3/uL (0.2-0.8); MONOCYTES % (AUTO) 7 % (2-9); NEUTROPHILS # (AUTO) 13.33 x10^3/uL (1.8-6.8); NEUTROPHILS % (AUTO) 85 % (42-75)
[2018-08-13 07:54] VITALS: BP 134/70
[2018-08-13] MEDS: TIMOLOL OPHTH 0.5%, 5ML EACHEYE SCH (09:00)
[2018-08-13] MEDS: POLYETHYLENE GLYCOL 17 GM PACKET PO SCH (10:11)
[2018-08-13] MEDS: SENNA/DOCUSATE TABLET PO SCH (10:11)
[2018-08-13 14:02] VITALS: BP 111/61
[2018-08-13 20:55] VITALS: BP 129/62
[2018-08-13] MEDS: MEROPENEM 500 MG in SODIUM CHLORIDE 0.9% 100 ML IV SCH (21:08)
[2018-08-14 02:58] VITALS: BP 135/63
[2018-08-14] MEDS ORDERED: VANCOMYCIN 1,200 MG in SODIUM CHLORIDE 0.9% 250 ML IV ONE (05:00)
[2018-08-14 07:10] VITALS: BP 125/87
[2018-08-14 07:15] LABS: ALBUMIN 2.2 g/dL (3.4-5.0); ANION GAP 12 mmol/L (5-15); CALCIUM 7.4 mg/dL (8.5-10.1); CHLORIDE 107 mmol/L (98-107)
[2018-08-14 07:16] LABS: BASOPHILS # (AUTO) 0.01 x10^3/uL (0-0.1); BASOPHILS % (AUTO) 0 % (0-1); EOSINOPHILS # (AUTO) 0.12 x10^3/uL (0-0.4); EOSINOPHILS % (AUTO) 1 % (1-7); LYMPHOCYTES # (AUTO) 1.38 x10^3/uL (1-3.4); LYMPHOCYTES % (AUTO) 10 % (22-44); MD NO; MEAN CORPUSCULAR HEMOGLOBIN 28.2 pg (27.5-34.5); MEAN CORPUSCULAR HGB CONC 32.5 g/dL (33.2-36.2); MEAN CORPUSCULAR VOLUME 86.9 fL (81-97); MEAN PLATELET VOLUME 6.9 fL (7.4-10.4); MONOCYTES # (AUTO) 1.15 x10^3/uL (0.2-0.8); MONOCYTES % (AUTO) 8 % (2-9); NEUTROPHILS # (AUTO) 11.25 x10^3/uL (1.8-6.8); NEUTROPHILS % (AUTO) 81 % (42-75); PLATELET COUNT 255 x10^3/uL (130-400); RED CELL DISTRIBUTION WIDTH 14.3 % (9.4-14.8)
[2018-08-14 07:19] LABS: ALANINE AMINOTRANSFERASE 26 U/L (12-78); ALKALINE PHOSPHATASE 84 U/L (45-117); BILIRUBIN,TOTAL 0.6 mg/dL (0.2-1.0); CREATININE 4.55 mg/dL (0.7-1.3); TOTAL PROTEIN 5.4 g/dL (6.4-8.2)
[2018-08-14] MEDS ORDERED: POTASSIUM CHLORIDE 40 MEQ in SODIUM CHLORIDE 0.9% 500 ML IV ONE (07:30)
[2018-08-14] MEDS: TIMOLOL OPHTH 0.5%, 5ML EACHEYE SCH (08:29)
[2018-08-14] MEDS: SENNA/DOCUSATE TABLET PO SCH (08:38)
[2018-08-14] MEDS: POLYETHYLENE GLYCOL 17 GM PACKET PO SCH (08:38)
[2018-08-14] MEDS ORDERED: POTASSIUM CHLORIDE 20 MEQ TAB.ER.PRT PO ONE (10:30)
--- NOTE | 2018-08-14 12:50 | NUR ---
REC SOFT/THIN; swallow precautions sheet posted at bedside. No further VISUAL MERCHANDISING SPECIALIST intervention indicated at this time. Will DC order. Addendum: 08/14/18 at [address] Amended: Links added.
[2018-08-14 16:35] VITALS: BP 108/55
[2018-08-14] MEDS: MEROPENEM 500 MG in SODIUM CHLORIDE 0.9% 100 ML IV SCH (17:24)
[2018-08-14 18:58] VITALS: BP 112/59
[2018-08-15 00:38] VITALS: BP 108/54
[2018-08-15] MEDS: MEROPENEM 500 MG in SODIUM CHLORIDE 0.9% 100 ML IV SCH ×2 (04:53→17:59)
[2018-08-15 06:35] LABS: MEAN CORPUSCULAR HGB CONC 33.5 g/dL (33.2-36.2); MEAN CORPUSCULAR VOLUME 86.7 fL (81-97); MEAN PLATELET VOLUME 6.9 fL (7.4-10.4); PLATELET COUNT 261 x10^3/uL (130-400); RED BLOOD COUNT 2.94 x10^6/uL (4.38-5.82); RED CELL DISTRIBUTION WIDTH 13.7 % (9.4-14.8)
[2018-08-15 06:44] LABS: ALANINE AMINOTRANSFERASE 54 U/L (12-78); ALBUMIN 2.1 g/dL (3.4-5.0); ANION GAP 11 mmol/L (5-15); CALCIUM 7.5 mg/dL (8.5-10.1); CHLORIDE 107 mmol/L (98-107); CREATININE 4.46 mg/dL (0.7-1.3)
[2018-08-15 06:46] LABS: ALKALINE PHOSPHATASE 114 U/L (45-117); BILIRUBIN,TOTAL 0.5 mg/dL (0.2-1.0); TOTAL PROTEIN 5.5 g/dL (6.4-8.2)
[2018-08-15 07:16] LABS: BASOPHILS # (AUTO) 0.04 x10^3/uL (0-0.1); BASOPHILS % (AUTO) 0 % (0-1); EOSINOPHILS % (AUTO) 3 % (1-7); LYMPHOCYTES # (AUTO) 1.23 x10^3/uL (1-3.4); LYMPHOCYTES % (AUTO) 10 % (22-44); MD SCAN; MONOCYTES # (AUTO) 0.97 x10^3/uL (0.2-0.8); MONOCYTES % (AUTO) 8 % (2-9); NEUTROPHILS # (AUTO) 9.35 x10^3/uL (1.8-6.8); NEUTROPHILS % (AUTO) 79 % (42-75)
[2018-08-15 07:47] VITALS: BP 118/64
[2018-08-15] MEDS: TIMOLOL OPHTH 0.5%, 5ML EACHEYE SCH (09:00)
[2018-08-15] MEDS: SENNA/DOCUSATE TABLET PO SCH (09:00)
[2018-08-15] MEDS: POLYETHYLENE GLYCOL 17 GM PACKET PO SCH (09:00)
[2018-08-15 12:30] VITALS: BP 139/85
[2018-08-15 19:48] VITALS: BP 114/53
[2018-08-16 03:06] VITALS: BP 124/63
[2018-08-16] MEDS: MEROPENEM 500 MG in SODIUM CHLORIDE 0.9% 100 ML IV SCH (05:04)
[2018-08-16 06:01] LABS: BASOPHILS # (AUTO) 0.05 x10^3/uL (0-0.1); BASOPHILS % (AUTO) 1 % (0-1); EOSINOPHILS # (AUTO) 0.42 x10^3/uL (0-0.4); EOSINOPHILS % (AUTO) 4 % (1-7); LYMPHOCYTES # (AUTO) 1.21 x10^3/uL (1-3.4); LYMPHOCYTES % (AUTO) 12 % (22-44); MD NO; MEAN CORPUSCULAR HEMOGLOBIN 29.3 pg (27.5-34.5); MEAN CORPUSCULAR HGB CONC 33.4 g/dL (33.2-36.2); MEAN CORPUSCULAR VOLUME 87.7 fL (81-97); MEAN PLATELET VOLUME 6.8 fL (7.4-10.4); MONOCYTES # (AUTO) 1.15 x10^3/uL (0.2-0.8); MONOCYTES % (AUTO) 11 % (2-9); NEUTROPHILS # (AUTO) 7.64 x10^3/uL (1.8-6.8); NEUTROPHILS % (AUTO) 73 % (42-75); PLATELET COUNT 249 x10^3/uL (130-400); RED BLOOD COUNT 2.89 x10^6/uL (4.38-5.82); RED CELL DISTRIBUTION WIDTH 13.8 % (9.4-14.8)
[2018-08-16 06:10] LABS: CHLORIDE 108 mmol/L (98-107)
[2018-08-16 06:23] LABS: ALANINE AMINOTRANSFERASE 79 U/L (12-78); ALBUMIN 2.1 g/dL (3.4-5.0); ALKALINE PHOSPHATASE 102 U/L (45-117); ANION GAP 10 mmol/L (5-15); BILIRUBIN,TOTAL 0.5 mg/dL (0.2-1.0); CALCIUM 7.3 mg/dL (8.5-10.1); CREATININE 4.37 mg/dL (0.7-1.3); TOTAL PROTEIN 5.4 g/dL (6.4-8.2)
[2018-08-16 07:00] VITALS: BP 130/64
[2018-08-16] MEDS: TIMOLOL OPHTH 0.5%, 5ML EACHEYE SCH (09:00)
[2018-08-16] MEDS: SENNA/DOCUSATE TABLET PO SCH (09:00)
[2018-08-16] MEDS: POLYETHYLENE GLYCOL 17 GM PACKET PO SCH (09:00)
[2018-08-16] MEDS ORDERED: HYDROCORTISONE CRM 0.5%, 30GM TP SCH (10:00)
[2018-08-16 13:01] VITALS: BP 106/60
[2018-08-16] MEDS ORDERED: SULF1TAB23 PO (14:52)
== END 2018-08-16 17:12 | DRG 871 ==
LOC: ED 15:59 → EDIP 17:39 → 4WST 20:24
PROVIDERS: ADMIT Family Medicine; ATTEND Family Medicine
PROC: 0T9B70Z Drainage of Bladder with Drainage Device, Via Natural or Artificial Opening (ICD-10-PCS; principal; 2018-08-09)
PROC: 30233N1 Transfusion of Nonautologous Red Blood Cells into Peripheral Vein, Percutaneous Approach (ICD-10-PCS; 2018-08-10)
PROC: 02HV33Z Insertion of Infusion Device into Superior Vena Cava, Percutaneous Approach (ICD-10-PCS; 2018-08-10)
PROC: B5181ZA Fluoroscopy of Superior Vena Cava using Low Osmolar Contrast, Guidance (ICD-10-PCS; 2018-08-10)
PROC: B548ZZA Ultrasonography of Superior Vena Cava, Guidance (ICD-10-PCS; 2018-08-10)
PROC: 5A1D70Z Performance of Urinary Filtration, Intermittent, Less than 6 Hours Per Day (ICD-10-PCS; 2018-08-10)
PROC: 0T913ZZ Drainage of Left Kidney, Percutaneous Approach (ICD-10-PCS; 2018-08-11)
PROC: 0T903ZZ Drainage of Right Kidney, Percutaneous Approach (ICD-10-PCS; 2018-08-11)
PROC: 5A1D70Z Performance of Urinary Filtration, Intermittent, Less than 6 Hours Per Day (ICD-10-PCS; 2018-08-11)
DX: A41.9 Sepsis, unspecified organism (principal); N17.0 Acute kidney failure with tubular necrosis; E87.2 Acidosis; E46 Unspecified protein-calorie malnutrition; N13.8 Other obstructive and reflux uropathy; N13.6 Pyonephrosis; I13.10 Hypertensive heart and chronic kidney disease without heart failure, with stage 1 through stage 4 chronic kidney disease, or unspecified chronic kidney disease; B96.20 Unspecified Escherichia coli [E. coli] as the cause of diseases classified elsewhere; D64.9 Anemia, unspecified; E11.22 Type 2 diabetes mellitus with diabetic chronic kidney disease; Z68.25 Body mass index [BMI] 25.0-25.9, adult; E87.5 Hyperkalemia; H40.9 Unspecified glaucoma; I49.3 Ventricular premature depolarization; I95.3 Hypotension of hemodialysis; K59.00 Constipation, unspecified; N18.9 Chronic kidney disease, unspecified; N40.1 Benign prostatic hyperplasia with lower urinary tract symptoms; Z51.5 Encounter for palliative care; Z82.5 Family history of asthma and other chronic lower respiratory diseases; Z83.3 Family history of diabetes mellitus; Z85.46 Personal history of malignant neoplasm of prostate; Z88.8 Allergy status to other drugs, medicaments and biological substances
CPT/HCPCS: 36415; 36430; 36569; 50432; 74022; 74176; 76770; 76937; 76942; 77001; 78306; 80048; 80053; 80069; 80202; 81001; 82306; 82565; 82728; 83540; 83550; 83605; 83690; 83735; 83970; 84132; 84145; 84153; 84154; 84443; 84484; 84550; 85025; 86705; 86706; 86850; 86900; 86923; 87040; 87077; 87086; 87186; 87340; 93005; 96365; 96368; 96375; 99156; 99157; C1894; G0378; J0696; J1644; J2185; J2250; J2405; J2597; J3010; J3370; J3480; J7070; Q9966; A9503; C1729; C1751; C1769; C9898; J1200; J1642; J3490; J7030; J7040; J7050; J7120; P9016

== ENCOUNTER 2019-03-30 02:09 | Emergency (ER) | payer MEDICARE ==
[~2019-03-30] VITALS: Ht 172.7 cm; Wt 76.0 kg
[~2019-03-30 02:09] MED LIST changes: +AMPI500C2 PO; +ASCO500C10 PO; +C,E,1CAP PO; +CHOL200059 PO; +CIPR250T27 PO; +DOCU-180 PO; +FURO20TA3 PO; +LORA1TAB PO; +SODI325T PO; +SULF1TAB23 PO; +TIMO5DRO33 EACHEYE; +UBID100C24 PO; +ferrous; +iron PO
--- NOTE | 2019-03-30 02:29 | NUR ---
ASSESSMENT MADE. ERP AT BEDSIDE.
--- NOTE | 2019-03-30 03:18 | NUR ---
patient nephrostomy site ( Left ) leaking urine. gauze applied. bedsheet changed. warm blankets provided.
--- NOTE | 2019-03-30 03:40 | NUR ---
PER MD PLAN IS FOR IR IN THE MORNING TO REPLACE NEPHROSTOMY TUBE
--- NOTE | 2019-03-30 04:31 | NUR ---
PT MOVED TO HOSPITAL BED AT THIS TIME. POC DISCUSSED. PT AND FAMILY DENY FURTHER NEEDS AT THIS TIME. CALL LIGHT ON LAP.
--- NOTE | 2019-03-30 06:07 | NUR ---
DANIELA CHANGED. POC DISCUSSED. PT AND FAMILY DENY CURRENT NEEDS. CALL LIGHT ON LAP.
--- NOTE | 2019-03-30 06:54 | NUR ---
REPORT RECIEVED FROM CHRISTINA SHIN.
--- NOTE | 2019-03-30 09:15 | NUR ---
REPORT FROM ALEIDA KEARNEY. PT RESTING IN BED, EYES CLOSED, RESPIRATIONS EVEN AND UNLABORED, VITALS WNL. FAMILY OUT FOR BREAKFAST. CALL LIGHT IN REACH.
[2019-03-30] MEDS ORDERED: FENTANYL PF 100 MCG/2ML ONE (09:54)
[2019-03-30] MEDS ORDERED: FLUMAZENIL 0.1 MG/1 ML, 5ML ONE (09:54)
[2019-03-30] MEDS ORDERED: NALOXONE 1 MG/ML, 2ML ONE (09:55)
[2019-03-30] MEDS ORDERED: MIDAZOLAM 1 MG/ML, 5ML ONE (09:55)
[2019-03-30] MEDS ORDERED: LIDOCAINE 1%, 20ML ONE (09:56)
--- NOTE | 2019-03-30 10:29 | NUR ---
PT TO IR.
--- NOTE | 2019-03-30 10:55 | NUR ---
IR CALLED REPORT, NEPHROSTOMY TUBE REPLACED ON LEFT SIDE WITHOUT COMPLICATIONS.
[2019-03-30] MEDS ORDERED: VISIPAQUE 270 MG/ML, 50ML BOTTLE ONE (11:14)
[2019-03-30 11:45] VITALS: BP 134/75
== END 2019-03-30 12:03 | disposition home or self-care (01) ==
LOC: ED 04:02
DX: T83.022A Displacement of nephrostomy catheter, initial encounter (principal); I11.0 Hypertensive heart disease with heart failure; I50.9 Heart failure, unspecified; Z85.51 Personal history of malignant neoplasm of bladder; Z85.46 Personal history of malignant neoplasm of prostate
CPT/HCPCS: 50432; 50435; 99284; C1729; C1769; J2250; J3010; J3490; Q9966; J2310